=== PATIENT | male | born 1940 | race Caucasian/White ===

== ENCOUNTER 2020-02-29 13:58 | Emergency (ER) | payer OTHER ==
[~2020-02-29] VITALS: Ht 167.6 cm; Wt 84.8 kg
[2020-02-29] MEDS ORDERED: ALLO300 PO (14:16)
[2020-02-29] MEDS ORDERED: ATOR20 PO (14:17)
[2020-02-29] MEDS ORDERED: AMLO10 PO (14:17)
[2020-02-29] MEDS ORDERED: CYCL10 PO (14:18)
[2020-02-29] MEDS ORDERED: Norco 10-325 T1 EACH PO (14:18)
[2020-02-29] MEDS ORDERED: NOVOLOG FL100 UNIT/3 SC (14:20)
[2020-02-29] MEDS ORDERED: BASAGLAR K100 UNIT/1 SC ×2 (14:21→14:24)
[2020-02-29] MEDS ORDERED: OMEP20ER PO (14:25)
[2020-02-29] MEDS ORDERED: TAMS.4ER PO (14:26)
[2020-02-29 15:35] LABS: BASOPHILS ABSOLUTE AUTO 0.04 K/mm3 (0.00-0.23); BASOPHILS PERCENT AUTO 1 % (0-2); EOSINOPHILS ABSOLUTE AUTO 0.26 K/mm3 (0.00-0.68); EOSINOPHILS PERCENT AUTO 3 % (0-6); Hematocrit 38.7 % (37.0-53.0); Hemoglobin 12.5 g/dL (13.5-17.5); IMMATURE GRAN ABSOLUTE AUTO 0.02 K/mm3 (0.00-0.10); IMMATURE GRAN PERCENT AUTO 0 % (0-1); LYMPHOCYTES ABSOLUTE AUTO 1.26 K/mm3 (0.84-5.20); LYMPHOCYTES PERCENT AUTO 16 % (21-46); MONOCYTES ABSOLUTE AUTO 0.73 K/mm3 (0.16-1.47); MONOCYTES PERCENT AUTO 9 % (4-13); Mean Corpuscular HGB 30.2 pg (26.0-34.0); Mean Corpuscular HGB Conc 32.3 g/dL (31.5-36.5); Mean Corpuscular Volume 94 fL (80-100); Mean Platelet Volume 12.2 fL (9.1-12.4); NEUTROPHILS ABSOLUTE AUTO 5.54 K/mm3 (1.96-9.15); NEUTROPHILS PERCENT AUTO 71 % (41-73); Platelet Count 226 K/mm3 (150-400); RDW Standard Deviation 48.3 fL (35.1-46.3); Red Blood Cell Count 4.14 M/mm3 (4.30-5.90); White Blood Cell Count 7.85 K/mm3 (4.00-11.30)
[2020-02-29 15:41] LABS: Albumin, Blood 2.7 g/dL (3.4-5.0); Albumin/Globulin Ratio 0.6 (0.8-1.8); Bilirubin, Total 0.2 mg/dL (0.1-1.0); Bun/Creatinine Ratio 19.4 (12.0-20.0); Calcium, Blood 8.6 mg/dL (8.5-10.1); Creatinine, Blood 1.55 mg/dL (0.60-1.20); Globulin, Blood 4.5 g/dL (2.2-4.0); Potassium, Blood 4.2 mmol/L (3.5-5.5); Total Protein, Blood 7.2 g/dL (6.4-8.2)
== END 2020-02-29 17:03 | disposition home or self-care (01) ==
LOC: ER 13:58
PROVIDERS: Emergency Medicine
DX: R42 Dizziness and giddiness (principal); I12.9 Hypertensive chronic kidney disease with stage 1 through stage 4 chronic kidney disease, or unspecified chronic kidney disease; E11.22 Type 2 diabetes mellitus with diabetic chronic kidney disease; N18.9 Chronic kidney disease, unspecified; Z79.4 Long term (current) use of insulin; Z88.5 Allergy status to narcotic agent; Z79.899 Other long term (current) drug therapy
CPT/HCPCS: 80053; 84484; 85025; 93005; 93010; 99284-25

== ENCOUNTER 2020-04-08 05:32 | Day surgery (SDC) | payer OTHER ==
[~2020-04-08] VITALS: Ht 165.1 cm; Wt 88.0 kg
[~2020-04-08 05:32] MED LIST: ALLO300 PO; AMLO10 PO; ATOR20 PO; BASAGLAR K100 UNIT/1 SC; CHLO500T PO; CLEM1.34; CYCL10 PO; HYDROCODONE-AC1 EAC7 PO; METO25ER PO; NOVOLOG FL100 UNIT/2 SC; NOVOLOG FL100 UNIT/3 SC; Norco 10-325 T1 EACH PO; OMEP20ER PO; PREG50 PO; TAMS.4ER PO
--- NOTE | 2020-04-08 11:17 | NUR ---
DISCHARGE PT REMAINED A&OX3 AND DENIED ANY PAIN DURING RECOVERY. RIGHT RADIAL SITE-TR BAND REMOVED-CLOTH DOT AND WHITE BOARD IN PLACE-CDI, NO HEMATOMA NOTED. IV DC'D WITH CANYLA IN TACT. PT ABLE TO DRESS SELF WITH LITTLE ASSISTANCE. DISCHARGE PAPERWORK GONE OVER WITH PT AND DAUGHTER. PT AND DAUGHTER VERBALLY STATED THE UNDERSTANDING OF THE DISCHARGE EDUCATION AND DENIED ANY QUESTIONS AT THIS TIME. CD INCLUDED IN DISCHARGE PACKET. PT WHEELED OUT BY THIS NURSE.
== END 2020-04-08 11:00 | disposition home or self-care (01) ==
LOC: MHTC 05:32
PROC: B201YZZ Plain Radiography of Multiple Coronary Arteries using Other Contrast (ICD-10-PCS; principal; 2020-04-08)
PROC: 4A023N7 Measurement of Cardiac Sampling and Pressure, Left Heart, Percutaneous Approach (ICD-10-PCS; principal; 2020-04-08)
DX: I25.119 Atherosclerotic heart disease of native coronary artery with unspecified angina pectoris (principal); I49.3 Ventricular premature depolarization; E11.22 Type 2 diabetes mellitus with diabetic chronic kidney disease; I12.9 Hypertensive chronic kidney disease with stage 1 through stage 4 chronic kidney disease, or unspecified chronic kidney disease; N18.9 Chronic kidney disease, unspecified; E78.5 Hyperlipidemia, unspecified; F17.200 Nicotine dependence, unspecified, uncomplicated; K21.9 Gastro-esophageal reflux disease without esophagitis; Z88.5 Allergy status to narcotic agent; Z79.4 Long term (current) use of insulin; Z88.8 Allergy status to other drugs, medicaments and biological substances; Z79.899 Other long term (current) drug therapy; E66.9 Obesity, unspecified; M19.90 Unspecified osteoarthritis, unspecified site; L57.0 Actinic keratosis; Z68.32 Body mass index [BMI] 32.0-32.9, adult
CPT/HCPCS: 76937; 82947; 85347; 93454; 99152; 99153; C1769; C1887; C1894; J2250; J3010; J7030; J7050; Q9967

== ENCOUNTER 2020-06-25 11:51 | Emergency (ER) | payer OTHER ==
[~2020-06-25] VITALS: Ht 167.6 cm; Wt 86.2 kg
[~2020-06-25 11:51] MED LIST changes: -ALLO300 PO; -ATOR20 PO; -CHLO500T PO; -CYCL10 PO; -METO25ER PO; -NOVOLOG FL100 UNIT/3 SC; -Norco 10-325 T1 EACH PO; -PREG50 PO
[2020-06-25 12:53] LABS: BASOPHILS ABSOLUTE AUTO 0.07 K/mm3 (0.00-0.23); BASOPHILS PERCENT AUTO 1 % (0-2); EOSINOPHILS ABSOLUTE AUTO 0.38 K/mm3 (0.00-0.68); EOSINOPHILS PERCENT AUTO 3 % (0-6); Hematocrit 31.8 % (37.0-53.0); Hemoglobin 10.4 g/dL (13.5-17.5); IMMATURE GRAN ABSOLUTE AUTO 0.04 K/mm3 (0.00-0.10); IMMATURE GRAN PERCENT AUTO 0 % (0-1); LYMPHOCYTES ABSOLUTE AUTO 0.98 K/mm3 (0.84-5.20); LYMPHOCYTES PERCENT AUTO 8 % (21-46); MONOCYTES ABSOLUTE AUTO 0.98 K/mm3 (0.16-1.47); MONOCYTES PERCENT AUTO 8 % (4-13); Mean Corpuscular HGB 29.9 pg (26.0-34.0); Mean Corpuscular HGB Conc 32.7 g/dL (31.5-36.5); Mean Corpuscular Volume 91 fL (80-100); Mean Platelet Volume 10.8 fL (9.1-12.4); NEUTROPHILS ABSOLUTE AUTO 9.86 K/mm3 (1.96-9.15); NEUTROPHILS PERCENT AUTO 80 % (41-73); Platelet Count 429 K/mm3 (150-400); RDW Coefficient Variation 13.7 % (11.7-14.2); RDW Standard Deviation 45.7 fL (35.1-46.3); Red Blood Cell Count 3.48 M/mm3 (4.30-5.90); White Blood Cell Count 12.31 K/mm3 (4.00-11.30)
[2020-06-25 13:14] LABS: Albumin, Blood 2.4 g/dL (3.4-5.0); Albumin/Globulin Ratio 0.5 (0.8-1.8); Bilirubin, Total 0.5 mg/dL (0.1-1.0); Bun/Creatinine Ratio 14.9 (12.0-20.0); Calcium, Blood 8.9 mg/dL (8.5-10.1); Creatinine, Blood 1.68 mg/dL (0.60-1.20); Globulin, Blood 4.7 g/dL (2.2-4.0); Potassium, Blood 4.6 mmol/L (3.5-5.5); Total Protein, Blood 7.1 g/dL (6.4-8.2); Troponin I 0.231 ng/mL (0.000-0.040)
[2020-06-25] MEDS ORDERED: CLOP75 PO (14:00)
[2020-06-25] MEDS ORDERED: METO25 PO (14:01)
[2020-06-25] MEDS ORDERED: HYDR1TAB94 PO (14:02)
[2020-06-25] MEDS ORDERED: Aspir 8181 MG PO (14:02)
[2020-06-25] MEDS ORDERED: CYCL10 PO (14:03)
[2020-06-25] MEDS ORDERED: ALLO300 PO (14:03)
[2020-06-25] MEDS ORDERED: DOXA2 PO (14:04)
[2020-06-25] MEDS ORDERED: CHLO25B PO (14:04)
[2020-06-25] MEDS ORDERED: ATOR40TA PO (14:05)
[2020-06-25] MEDS ORDERED: MULVITA PO (14:05)
[2020-06-25] MEDS ORDERED: PREG50 PO (14:06)
[2020-06-25] MEDS ORDERED: BASAGLAR K100 UNIT/1 SC (14:08)
[2020-06-25] MEDS ORDERED: NOVOLOG FL100 UNIT/3 SC (14:08)
[2020-06-25] MEDS ORDERED: OMEP20ER PO (14:09)
== END 2020-06-25 15:36 | disposition home or self-care (01) ==
LOC: ER 11:51
PROVIDERS: Physician Assistant
DX: R07.89 Other chest pain (principal); E11.22 Type 2 diabetes mellitus with diabetic chronic kidney disease; I12.9 Hypertensive chronic kidney disease with stage 1 through stage 4 chronic kidney disease, or unspecified chronic kidney disease; N18.9 Chronic kidney disease, unspecified; Z79.82 Long term (current) use of aspirin; Z79.4 Long term (current) use of insulin; Z88.5 Allergy status to narcotic agent; Z79.899 Other long term (current) drug therapy; Z79.02 Long term (current) use of antithrombotics/antiplatelets
CPT/HCPCS: 71046; 80053; 84484; 85025; 93005; 93010; 99284-25

== ENCOUNTER 2020-06-28 10:59 | Observation (INO) | payer OTHER ==
[~2020-06-28] VITALS: Ht 167.6 cm; Wt 82.9 kg
[~2020-06-28 10:59] MED LIST changes: +ALLO300 PO; +ATOR40TA PO; +Aspir 8181 MG PO; +CHLO25B PO; +CLOP75 PO; +CYCL10 PO; +DOXA2 PO; +HYDR1TAB94 PO; +METO25 PO; +MULVITA PO; +NOVOLOG FL100 UNIT/3 SC; +PREG50 PO
[2020-06-28 11:49] LABS: BASOPHILS ABSOLUTE AUTO 0.05 K/mm3 (0.00-0.23); BASOPHILS PERCENT AUTO 1 % (0-2); EOSINOPHILS ABSOLUTE AUTO 0.14 K/mm3 (0.00-0.68); EOSINOPHILS PERCENT AUTO 2 % (0-6); Hematocrit 32.2 % (37.0-53.0); Hemoglobin 10.1 g/dL (13.5-17.5); IMMATURE GRAN ABSOLUTE AUTO 0.02 K/mm3 (0.00-0.10); IMMATURE GRAN PERCENT AUTO 0 % (0-1); LYMPHOCYTES ABSOLUTE AUTO 0.83 K/mm3 (0.84-5.20); LYMPHOCYTES PERCENT AUTO 9 % (21-46); MONOCYTES ABSOLUTE AUTO 0.72 K/mm3 (0.16-1.47); MONOCYTES PERCENT AUTO 8 % (4-13); Mean Corpuscular HGB 28.6 pg (26.0-34.0); Mean Corpuscular HGB Conc 31.4 g/dL (31.5-36.5); Mean Corpuscular Volume 91 fL (80-100); Mean Platelet Volume 10.9 fL (9.1-12.4); NEUTROPHILS ABSOLUTE AUTO 7.76 K/mm3 (1.96-9.15); NEUTROPHILS PERCENT AUTO 82 % (41-73); Platelet Count 500 K/mm3 (150-400); RDW Coefficient Variation 13.3 % (11.7-14.2); RDW Standard Deviation 43.9 fL (35.1-46.3); Red Blood Cell Count 3.53 M/mm3 (4.30-5.90); White Blood Cell Count 9.52 K/mm3 (4.00-11.30)
[2020-06-28 12:04] LABS: Albumin, Blood 2.5 g/dL (3.4-5.0); Albumin/Globulin Ratio 0.5 (0.8-1.8); Bilirubin, Total 0.5 mg/dL (0.1-1.0); Bun/Creatinine Ratio 21.3 (12.0-20.0); Calcium, Blood 9.2 mg/dL (8.5-10.1); Creatinine, Blood 1.74 mg/dL (0.60-1.20); Globulin, Blood 4.7 g/dL (2.2-4.0); Potassium, Blood 4.1 mmol/L (3.5-5.5); Total Protein, Blood 7.2 g/dL (6.4-8.2)
[2020-06-28 14:37] LABS: Free Thyroxine 1.38 ng/dL (0.70-1.60); Thyroid Stimulating Hormone 0.517 uIU/mL (0.360-4.800)
--- NOTE | 2020-06-28 18:34 | NUR ---
PT arrived to PCU. Alert, oriented and appropriate in conversation. STates name, birthdate, location, and that date is June. Corrected pt on exact date. Able to state that he had open heart surgeryon the 12 of June, that his daughter is helping him at home. sTates reason for coming to hospital is that he was having a fluttering in his heart and chest pain last night. States he needs to use the urinal. Vital signs taken, noted stable. Respirations are even, unlabored.
[2020-06-29 04:47] LABS: BASOPHILS ABSOLUTE AUTO 0.07 K/mm3 (0.00-0.23); BASOPHILS PERCENT AUTO 1 % (0-2); EOSINOPHILS ABSOLUTE AUTO 0.22 K/mm3 (0.00-0.68); EOSINOPHILS PERCENT AUTO 3 % (0-6); Hematocrit 29.9 % (37.0-53.0); Hemoglobin 9.6 g/dL (13.5-17.5); IMMATURE GRAN ABSOLUTE AUTO 0.01 K/mm3 (0.00-0.10); IMMATURE GRAN PERCENT AUTO 0 % (0-1); LYMPHOCYTES ABSOLUTE AUTO 0.89 K/mm3 (0.84-5.20); LYMPHOCYTES PERCENT AUTO 11 % (21-46); MONOCYTES ABSOLUTE AUTO 0.76 K/mm3 (0.16-1.47); MONOCYTES PERCENT AUTO 9 % (4-13); Mean Corpuscular HGB 28.8 pg (26.0-34.0); Mean Corpuscular HGB Conc 32.1 g/dL (31.5-36.5); Mean Corpuscular Volume 90 fL (80-100); Mean Platelet Volume 11.1 fL (9.1-12.4); NEUTROPHILS ABSOLUTE AUTO 6.41 K/mm3 (1.96-9.15); NEUTROPHILS PERCENT AUTO 77 % (41-73); Platelet Count 472 K/mm3 (150-400); RDW Coefficient Variation 13.2 % (11.7-14.2); RDW Standard Deviation 43.3 fL (35.1-46.3); Red Blood Cell Count 3.33 M/mm3 (4.30-5.90); White Blood Cell Count 8.36 K/mm3 (4.00-11.30)
[2020-06-29 05:03] LABS: Bun/Creatinine Ratio 20.1 (12.0-20.0); Calcium, Blood 8.7 mg/dL (8.5-10.1); Creatinine, Blood 1.49 mg/dL (0.60-1.20); Potassium, Blood 3.3 mmol/L (3.5-5.5)
--- NOTE | 2020-06-29 05:38 | NUR ---
SHIFT SUMMARY AT THE BEGINNING OF THE SHIFT PATIENT WAS ALERT AND ORIENTED TO THE CURRENT DATE, LOCATION, REASON FOR BEING HERE, AND THE PRESIDENT. BASED ON NEURO CHECKS AND ANSWERS TO ORIENTATION QUESTIONS PATIENT APPEARED TO BE A GOOD HISTORIAN AT THE BEGINNING OF THE SHIFT. THE NIGHT PROGRESSED PATIENT WAS ABLE TO STATE HE WAS AT THE HOSPITAL BUT HE HAD TROUBLE REMEMBERING WHAT CITY HE WAS IN, WHEN ORIENTED TO CURRENT CITY HE STATED, "I THOUGHT SOMEONE TOLD ME I WAS IN [place]." PATIENT SATED HE THOUGHT HE WAS AT THE HOSPITAL BECAUSE OF HIS HEART. PATIENT ALSO STATED HE THOUGHT IT WAS [place] WHEN ASKED THE CURRENT DATE THIS MORNING. HOWEVER PATIENT HAD NOT SLEPT MUCH LAST NIGHT AND HAD ONLY BEEN SLEEPING FOR APPROX ONE HOUR, PATIENT GROGGY FROM WAKING UP. PATIENT HAS BEEN ABLE TO STATE HIS NAME AND BIRTHDAY THROUGHOUT THE WHOLE SHIFT. PATIENT APPEARED TO BE ABLE TO SLEEP FOR SEVERAL HOURS THROUGHOUT THE NIGHT. PATIENT CURRENTLY APPEARS TO BE SLEEPING WITH EVEN AND UNLABORED BREATHING.
--- NOTE | 2020-06-29 12:30 | NUR ---
D/C TO HOME VIA PRIVATE VEHICLE. PT'S DAUGHTER WAS IN TO SPEAK WITH PHYSICIAN, SHE WAS ALSO PRESENT FOR D/C INSTRUCTIONS. PT IS A/O X4, VSS, RESP UNLABORED. PT ENC TO F/U ANDRE FOR ANY CONTINUING PROBLEMS OR CONCERNS. PT ESCORTED TO VEHICLE VIA W/C.
== END 2020-06-29 12:25 | disposition home or self-care (01) ==
LOC: ER 10:59 → PCU 18:08
PROVIDERS: Emergency Medicine; Family Medicine; ADMIT Internal Medicine
DX: G92 Toxic encephalopathy (principal); N17.9 Acute kidney failure, unspecified; I12.9 Hypertensive chronic kidney disease with stage 1 through stage 4 chronic kidney disease, or unspecified chronic kidney disease; E11.22 Type 2 diabetes mellitus with diabetic chronic kidney disease; N18.30 Chronic kidney disease, stage 3 unspecified; I25.10 Atherosclerotic heart disease of native coronary artery without angina pectoris; G89.29 Other chronic pain; M54.9 Dorsalgia, unspecified; Z79.02 Long term (current) use of antithrombotics/antiplatelets; Z79.82 Long term (current) use of aspirin; Z79.4 Long term (current) use of insulin; Z79.899 Other long term (current) drug therapy; Z88.5 Allergy status to narcotic agent; Z66 Do not resuscitate; Z95.1 Presence of aortocoronary bypass graft; Z87.891 Personal history of nicotine dependence; Z23 Encounter for immunization
CPT/HCPCS: 36415; 70450; 80048; 80053; 82140; 82947; 84439; 84443; 85025; 93005; 93010; 97116; 97161; A9270; A9270-GY; J1644; J1815; J3480; J7030

== ENCOUNTER 2022-09-07 13:00 | Observation (INO) | payer OTHER ==
[~2022-09-07] VITALS: Ht 167.6 cm; Wt 86.0 kg
[2022-09-07 13:32] LABS: BASOPHILS ABSOLUTE AUTO 0.04 K/mm3 (0.00-0.23); BASOPHILS PERCENT AUTO 1 % (0-2); EOSINOPHILS ABSOLUTE AUTO 0.25 K/mm3 (0.00-0.68); EOSINOPHILS PERCENT AUTO 3 % (0-6); Hemoglobin 12.5 g/dL (13.5-17.5); IMMATURE GRAN ABSOLUTE AUTO 0.01 K/mm3 (0.00-0.10); IMMATURE GRAN PERCENT AUTO 0 % (0-1); LYMPHOCYTES ABSOLUTE AUTO 0.87 K/mm3 (0.84-5.20); LYMPHOCYTES PERCENT AUTO 10 % (21-46); MONOCYTES ABSOLUTE AUTO 0.92 K/mm3 (0.16-1.47); MONOCYTES PERCENT AUTO 11 % (4-13); Mean Corpuscular HGB 30.1 pg (26.0-34.0); Mean Corpuscular HGB Conc 32.9 g/dL (31.5-36.5); Mean Corpuscular Volume 92 fL (80-100); Mean Platelet Volume 12.3 fL (9.1-12.4); NEUTROPHILS PERCENT AUTO 76 % (41-73); Platelet Count 160 K/mm3 (150-400); RDW Coefficient Variation 14.8 % (11.7-14.2); RDW Standard Deviation 49.9 fL (35.1-46.3); Red Blood Cell Count 4.15 M/mm3 (4.30-5.90); White Blood Cell Count 8.69 K/mm3 (4.00-11.30)
[2022-09-07 14:08] LABS: Albumin, Blood 2.7 g/dL (3.4-5.0); Albumin/Globulin Ratio 0.6 (0.8-1.8); Bilirubin, Total 0.5 mg/dL (0.1-1.0); Bun/Creatinine Ratio 13.8 (12.0-20.0); Calcium, Blood 9.1 mg/dL (8.5-10.1); Creatinine, Blood 1.74 mg/dL (0.60-1.20); Globulin, Blood 4.4 g/dL (2.2-4.0); Potassium, Blood 4.1 mmol/L (3.5-5.5); Total Protein, Blood 7.1 g/dL (6.4-8.2)
[2022-09-07] MEDS ORDERED: Insulin Glargine-Yfg SC (16:17)
[2022-09-07] MEDS ORDERED: ALLO300 PO (16:18)
[2022-09-07] MEDS ORDERED: ASPI81CH PO (16:19)
[2022-09-07] MEDS ORDERED: ATORVASTATIN CA80 M1 PO (16:20)
[2022-09-07] MEDS ORDERED: CARDURA2 M1 PO (16:22)
[2022-09-07] MEDS ORDERED: Norco 7.5/325 Tablet PO (16:23)
[2022-09-07] MEDS ORDERED: Zestril30 MG PO (16:24)
[2022-09-07] MEDS ORDERED: OMEP20ER PO (16:25)
[2022-09-07] MEDS ORDERED: FLOMAX0.4 MG PO (16:27)
[2022-09-07] MEDS ORDERED: AMLO10 PO (17:14)
[2022-09-07] MEDS ORDERED: CHLO25B PO (17:18)
[2022-09-07] MEDS ORDERED: FURO20 (17:19)
[2022-09-07 18:57] LABS: CPK Creatine Kinase 150 U/L (39-308)
[2022-09-08 00:34] LABS: Hematocrit 35.5 % (37.0-53.0); Hemoglobin 11.6 g/dL (13.5-17.5); Mean Corpuscular HGB 29.7 pg (26.0-34.0); Mean Corpuscular HGB Conc 32.7 g/dL (31.5-36.5); Mean Corpuscular Volume 91 fL (80-100); Mean Platelet Volume 12.1 fL (9.1-12.4); Platelet Count 144 K/mm3 (150-400); RDW Coefficient Variation 14.6 % (11.7-14.2); RDW Standard Deviation 48.5 fL (35.1-46.3); White Blood Cell Count 8.02 K/mm3 (4.00-11.30)
[2022-09-08 00:56] LABS: Anion Gap 1 mmol/L (6-16); Blood Urea Nitrogen 29 mg/dL (8-24); Bun/Creatinine Ratio 17.8 (12.0-20.0); CHOL/HDL RATIO 2.5; CO2, Blood 28 mmol/L (21-32); Calcium, Blood 8.5 mg/dL (8.5-10.1); Chloride, Blood 108 mmol/L (98-108); Cholesterol 108 mg/dL (50-200); Creatinine, Blood 1.63 mg/dL (0.60-1.20); Glomerular Filtration Rate 42 (60-); Glucose, Blood 146 mg/dL (70-99); HDL Cholesterol 44 mg/dL (>39); LDL/HDL RATIO 0.9; Low Density Lipoprotein Chol 38 mg/dL (0-110); Potassium, Blood 4.1 mmol/L (3.5-5.5); Sodium, Blood 137 mmol/L (136-145); Triglycerides 132 mg/dL (30-160); Very Low Density Lipoprot Chol 26 mg/dL (6-32)
[2022-09-08 01:02] LABS: CPK Creatine Kinase 160 U/L (39-308)
--- NOTE | 2022-09-08 12:36 | NUR ---
DISCHARGE: PT DISCHARGED AT 1200 FROM MEDICAL FLOOR. PT D/C WITH DAUGHTER VIA AUTOMOBILE. [facility]. ON HOLD FOR 20 MIN. PT STATES HE WILL CALL TO MAKE HIS APT. NO C/O PAIN OR N/V AT TIME OF DISCHARGE. PT INDEPENDENT. IV AND TELE REMOVED BY KATY IVAN. ALL BELONGINGS AND D/C PACKET SENT WITH PT.
== END 2022-09-08 12:04 | disposition home or self-care (01) ==
LOC: ER 13:00 → MEDS 13:01
PROVIDERS: Emergency Medicine; ADMIT Internal Medicine
DX: R07.9 Chest pain, unspecified (principal); R05.9 Cough, unspecified; I25.10 Atherosclerotic heart disease of native coronary artery without angina pectoris; I12.9 Hypertensive chronic kidney disease with stage 1 through stage 4 chronic kidney disease, or unspecified chronic kidney disease; N18.30 Chronic kidney disease, stage 3 unspecified; E11.22 Type 2 diabetes mellitus with diabetic chronic kidney disease; E78.5 Hyperlipidemia, unspecified; M54.9 Dorsalgia, unspecified; Z95.1 Presence of aortocoronary bypass graft; Z87.891 Personal history of nicotine dependence; K21.9 Gastro-esophageal reflux disease without esophagitis; N40.0 Benign prostatic hyperplasia without lower urinary tract symptoms; M10.9 Gout, unspecified
CPT/HCPCS: 36415; 71045; 71250; 80048; 80053; 80061; 82550; 82947; 83036; 83880; 84145; 84484; 85025; 85027; 93005; 93010; 96372; 99285-25; A9270; G0378; J0696; J1815